=== PATIENT | female | born 1970 | race Caucasian/White ===

== ENCOUNTER 2023-04-29 12:28 | Emergency (ER) | payer BC ==
[~2023-04-29] VITALS: Ht 157.5 cm; Wt 81.8 kg
[2023-04-29 12:36] VITALS: BP 134/91; PULSE 70; RESP 16; TEMP 98
[2023-04-29] MEDS ORDERED: CEPH-558 PO (13:42)
== END 2023-04-29 14:09 | disposition home or self-care (01) ==
LOC: EMS 12:33
DX: H66.91 Otitis media, unspecified, right ear (principal); H72.91 Unspecified perforation of tympanic membrane, right ear; F12.90 Cannabis use, unspecified, uncomplicated; H91.3 Deaf nonspeaking, not elsewhere classified; Z88.6 Allergy status to analgesic agent; Z98.890 Other specified postprocedural states
CPT/HCPCS: 99283; Z7502

== ENCOUNTER 2023-09-14 13:37 | Emergency (ER) | payer MEDICARE, OTHER ==
[~2023-09-14] VITALS: Ht 154.9 cm; Wt 72.7 kg
[~2023-09-14 13:37] MED LIST: CEPH-558 PO
[2023-09-14 13:49] VITALS: TEMP 98.4
[2023-09-14 14:00] LABS: APPEARANCE,URINE CLEAR (CLEAR); BILIRUBIN,URINE NEGATIVE (NEGATIVE); COLOR,URINE LIGHT YELLOW (YELLOW); GLUCOSE, URINE (UA) NEGATIVE (NEGATIVE); KETONES,URINE NEGATIVE (NEGATIVE); LEUKOCYTE ESTERASE ,URINE LARGE (NEGATIVE); NITRATE,URINE NEGATIVE (NEGATIVE); OCCULT BLOOD,URINE NEGATIVE (NEGATIVE); PH,URINE 6.5 (5.0-8.0); PROTEIN,URINE TRACE mg/dL (NEGATIVE); SPECIFIC GRAVITIY, URINE 1.024 (1.003-1.030); UROBILINOGEN,URINE <=1.0 mg/dL (<=1.0)
[2023-09-14 14:07] LABS: RBC,URINE 0-2 /HPF (0-2)
[2023-09-14 14:08] LABS: BACTERIA,URINE Moderate /HPF (None Seen); SQUAMOUS EPITHELIAL CELL,UR Moderate /LPF (None Seen)
[2023-09-14] MEDS ORDERED: SULF-261 PO (15:04)
[2023-09-14 15:16] VITALS: BP 151/71; PULSE 71; RESP 16
== END 2023-09-14 15:17 | disposition home or self-care (01) ==
LOC: EMS 13:38
DX: N12 Tubulo-interstitial nephritis, not specified as acute or chronic (principal); F12.90 Cannabis use, unspecified, uncomplicated; H91.90 Unspecified hearing loss, unspecified ear; Z91.013 Allergy to seafood; Z88.6 Allergy status to analgesic agent
CPT/HCPCS: 81001; 87086; 87186; 99283

== ENCOUNTER 2025-06-10 22:07 | Emergency (ER) | payer OTHER ==
[~2025-06-10] VITALS: Ht 154.9 cm; Wt 84.1 kg
[~2025-06-10 22:07] MED LIST changes: +SULF-261 PO
[2025-06-10 22:22] VITALS: TEMP 98.7
[2025-06-10 22:47] LABS: PLATELET COUNT (AUTO) 280 K/uL (150-450); RED BLOOD CELL COUNT(AUTO) 4.96 MIL/uL (4.00-5.20); RED CELL DISTRIBUTION WIDTH 14.2 % (11.5-14.5); WHITE BLOOD COUNT (AUTO) 10.5 K/uL (4.5-11.0)
[2025-06-10 22:52] LABS: CALCIUM, TOTAL 9.1 mg/dL (8.8-10.5); CREATININE 0.79 mg/dL (0.60-1.30); GLOMERULAR FILTR. RATE CALC > 60 mL/min (>60); GLUCOSE,RANDOM 128 mg/dL (70-110); SODIUM SERUM 137 mmol/L (136-145); UREA NITROGEN, BLOOD 19 mg/dL (7-18)
[2025-06-10 23:40] LABS: APPEARANCE,URINE HAZY (CLEAR); GLUCOSE, URINE (UA) NEGATIVE (NEGATIVE); LEUKOCYTE ESTERASE ,URINE LARGE (NEGATIVE); NITRATE,URINE NEGATIVE (NEGATIVE); OCCULT BLOOD,URINE NEGATIVE (NEGATIVE); SPECIFIC GRAVITIY, URINE 1.026 (1.003-1.030)
[2025-06-11 00:01] LABS: SQUAMOUS EPITHELIAL CELL,UR Moderate /LPF (None Seen)
[2025-06-11 00:24] LABS: ASPARTATE AMINOTRANSFERASE 19.0 U/L (15-37); TOTAL PROTEIN, SERUM 7.3 g/dL (6.4-8.2)
[2025-06-11 00:27] LABS: TROPONIN I-HIGH SENSITIVITY 5 ng/L (<51)
[2025-06-11] MEDS: MORPHINE SULFATE 2 MG/ML SYRINGE IVP ONE (02:22)
[2025-06-11] MEDS: CefTRIAXone 1 GM/DEXTROSE 50 ML IV ONE (02:40)
[2025-06-11 04:40] VITALS: BP 138/78; PULSE 74; RESP 16; O2SAT 97
[2025-06-11] MEDS ORDERED: POLY119P3 PO (04:46)
[2025-06-11] MEDS ORDERED: CEPH-558 PO (04:46)
== END 2025-06-11 05:15 | disposition home or self-care (01) ==
LOC: EMS 22:08
DX: N39.0 Urinary tract infection, site not specified (principal); N94.89 Other specified conditions associated with female genital organs and menstrual cycle; K59.00 Constipation, unspecified; R10.32 Left lower quadrant pain; K80.20 Calculus of gallbladder without cholecystitis without obstruction; F12.90 Cannabis use, unspecified, uncomplicated; Z98.890 Other specified postprocedural states; Z88.6 Allergy status to analgesic agent; Z91.013 Allergy to seafood; Z79.899 Other long term (current) drug therapy
CPT/HCPCS: 99285; 80048; 80076; 81001; 83690; 84484; 85025; 87040; 87086; 87205; 74176; 96365; 96375; 74018; 93005; 36415; J0696; J2270; 87077